=== PATIENT | male | born 2000 | race African-American/Black ===

== ENCOUNTER 2021-04-30 11:54 | Emergency (ER) | payer SELFPAY ==
[~2021-04-30] VITALS: Ht 172.7 cm; Wt 77.0 kg
[2021-04-30] MEDS ORDERED: ONDANSETRON HCL 4MG/2ML INJ IV STA (12:26)
[2021-04-30] MEDS ORDERED: KETOROLAC 30MG/ML VIAL IV STA (12:26)
[2021-04-30] MEDS ORDERED: SODIUM CHLORIDE 0.9% 1,000 ML IV ONE (12:30)
[2021-04-30 12:59] LABS: BASOPHILS % 1.2 % (0.0-2.0); EOSINOPHILS % 4.8 % (0.0-5.0); HEMATOCRIT. 41.4 % (42.0-52.0); HEMOGLOBIN. 14.4 g/dL (14.0-18.0); LYMPHOCYTES % 43.2 % (20.0-50.0); MEAN CORPUSCULAR HEMOGLOBIN 28.1 pg (28.0-32.0); MEAN CORPUSCULAR VOLUME 80.7 fL (80.0-94.0); MEAN PLATELET VOLUME 8.1 fl (7.4-10.4); MONOCYTES % 5.3 % (2.0-8.0); NEUTROPHILS % 45.5 % (40.0-76.0); PLATELET 348 x1000/uL (130-400); RED BLOOD CELL COUNT 5.12 mill/uL (4.7-6.1); RED CELL DISTRIBUTION WIDTH 17.5 % (11.6-14.6)
[2021-04-30 13:04] LABS: CHLORIDE 107 mEq/L (98-107)
[2021-04-30 13:08] LABS: ETHANOL BLOOD < 10 mg/dL
[2021-04-30] MEDS ORDERED: HALOPERIDOL LACTATE 5MG/ML VIAL IM ONE (14:00)
[2021-04-30 14:20] VITALS: BP 142/74
[2021-04-30] MEDS ORDERED: ONDA4TAB5 MT (17:44)
== END 2021-04-30 19:27 | disposition home or self-care (01) ==
LOC: ER 11:54
DX: R10.9 Unspecified abdominal pain (principal)
CPT/HCPCS: 36415; 80053; 80320; 83690; 85025; 93005; 96372; 96374; 96375; 99284; J1630; J1885; J2405; J7030; Z7610; G0480

== ENCOUNTER 2021-06-10 12:45 | Emergency (ER) | payer MEDICAID ==
[~2021-06-10] VITALS: Ht 172.7 cm; Wt 68.0 kg
[~2021-06-10 12:45] MED LIST: ONDA4TAB5 MT
[2021-06-10] MEDS ORDERED: FAMOTIDINE 20MG/2ML VIAL IV STA (13:28)
[2021-06-10] MEDS ORDERED: MORPHINE SULFATE 4 MG/ML CPJ (NOT FOR IM USE) IV STA (13:28)
[2021-06-10] MEDS ORDERED: METOCLOPRAMIDE HCL 10MG/2ML VIAL IV ONE (13:30)
[2021-06-10] MEDS ORDERED: SODIUM CHLORIDE 0.9% 1,000 ML IV ONE (13:30)
[2021-06-10 13:49] LABS: CHLORIDE 97 mEq/L (98-107)
[2021-06-10 13:54] LABS: ETHANOL BLOOD < 10 mg/dL
[2021-06-10 14:42] LABS: BASOPHILS % 0.7 % (0.0-2.0); EOSINOPHILS % 0.3 % (0.0-5.0); HEMOGLOBIN. 17.4 g/dL (14.0-18.0); LYMPHOCYTES % 39.2 % (20.0-50.0); MEAN CORPUSCULAR HEMOGLOBIN 29.1 pg (28.0-32.0); MEAN CORPUSCULAR VOLUME 79.2 fL (80.0-94.0); MEAN PLATELET VOLUME 8.2 fl (7.4-10.4); MONOCYTES % 7.8 % (2.0-8.0); PLATELET 242 x1000/uL (130-400); RED BLOOD CELL COUNT 5.96 mill/uL (4.7-6.1); RED CELL DISTRIBUTION WIDTH 15.7 % (11.6-14.6)
[2021-06-10 14:50] LABS: HEMATOCRIT. 49.2 % (42.0-52.0)
[2021-06-10] MEDS ORDERED: MORPHINE SULFATE 2 MG/ML CPJ (NOT FOR IM USE) IV NR (15:00)
[2021-06-10] MEDS ORDERED: POTASSIUM CHLORIDE 20MEQ TABLET SR PO ONE (15:45)
[2021-06-10 15:50] VITALS: BP 134/75
== END 2021-06-10 16:10 | disposition left against medical advice (07) ==
LOC: ER 12:54
DX: R10.84 Generalized abdominal pain (principal); R11.2 Nausea with vomiting, unspecified; E87.6 Hypokalemia
CPT/HCPCS: 36415; 74176; 80053; 80320; 83690; 85025; 96361; 96374; 96375; 99284; J2765; J3490; J7030; J2270; G0480

== ENCOUNTER 2023-07-17 09:03 | Emergency (ER) | payer MEDICAID ==
[~2023-07-17] VITALS: Ht 177.8 cm; Wt 64.0 kg
[2023-07-17] MEDS ORDERED: METOCLOPRAMIDE HCL 10MG/2ML VIAL IV STA (09:09)
[2023-07-17 09:12] VITALS: O2SAT 100
[2023-07-17] MEDS ORDERED: SODIUM CHLORIDE 0.9% 1,000 ML IV ONE (09:15)
[2023-07-17] MEDS ORDERED: KETOROLAC 15MG/ML VIAL IV ONE (09:15)
[2023-07-17 09:35] LABS: BASOPHILS % 0.1 % (0.0-2.0); EOSINOPHILS % 0.1 % (0.0-5.0); HEMATOCRIT. 40.4 % (42.0-52.0); HEMOGLOBIN. 14.4 g/dL (14.0-18.0); LYMPHOCYTES % 15.8 % (20.0-50.0); MEAN CORPUSCULAR HEMOGLOBIN 30.8 pg (28.0-32.0); MEAN CORPUSCULAR HGB CONC 35.6 g/dL (31.0-37.0); MEAN CORPUSCULAR VOLUME 86.6 fL (80.0-94.0); MEAN PLATELET VOLUME 8.3 fl (7.4-10.4); MONOCYTES % 6.2 % (2.0-8.0); NEUTROPHILS % 77.8 % (40.0-76.0); PLATELET 325 x1000/uL (130-400); RED BLOOD CELL COUNT 4.67 mill/uL (4.7-6.1); RED CELL DISTRIBUTION WIDTH 13.7 % (11.6-14.6); WHITE BLOOD COUNT 13.2 x1000/uL (4.5-11.0)
[2023-07-17 09:48] LABS: CHLORIDE 102 mEq/L (98-107); INDEX HEMOLYSI 1 (1-3); INDEX ICTERIC 1 (1-4); INDEX LIPEMIC 1 (1-3); POTASSIUM 3.2 mEq/L (3.5-5.1); SODIUM 135 mEq/L (136-145)
[2023-07-17 10:01] LABS: ALANINE AMINOTRANSFERASE 28 IU/L (13-61); ALBUMIN 4.1 g/dL (3.4-5.0); ASPARTATE AMINOTRANSFERASE 28 IU/L (15-37); BILIRUBIN TOTAL 0.5 mg/dL (0.1-1.0); CALCIUM 8.9 mg/dL (8.5-10.1); CARBON DIOXIDE 22 mEq/L (21-32); CREATININE 0.7 mg/dL (0.6-1.3); ETHANOL BLOOD < 10 mg/dL (<10); GLUCOSE 101 mg/dL (70-105); PROTEIN TOTAL 8.6 g/dL (6.0-8.3); UREA NITROGEN BLOOD 13 mg/dL (7-21)
[2023-07-17 11:52] VITALS: BP 104/60; PULSE 62; RESP 19; TEMP 98.1
== END 2023-07-17 12:27 | disposition home or self-care (01) ==
LOC: ER 09:03
DX: R11.2 Nausea with vomiting, unspecified (principal); R10.9 Unspecified abdominal pain; Z88.8 Allergy status to other drugs, medicaments and biological substances
CPT/HCPCS: 80053; 80320; 83690; 85025; 36415; 71045; 74176; 96361; 96374; 96375; 99285; J1885; J2765; J7030; Z7610 ×3; G0480

== ENCOUNTER 2023-07-20 10:32 | Emergency (ER) | payer MEDICAID ==
[~2023-07-20] VITALS: Ht 172.7 cm; Wt 68.0 kg
[2023-07-20 10:58] VITALS: BP 133/94; PULSE 55; RESP 16; TEMP 98.6; O2SAT 100
[2023-07-20] MEDS ORDERED: SODIUM CHLORIDE 0.9% 1,000 ML IV ONE (11:15)
[2023-07-20] MEDS ORDERED: FAMOTIDINE 20MG/2ML VIAL IV ONE (11:15)
[2023-07-20] MEDS ORDERED: DIPHENHYDRAMINE 50MG/ML VIAL IV ONE (11:15)
[2023-07-20] MEDS ORDERED: HALOPERIDOL LACTATE 5MG/ML VIAL IM ONE (11:15)
[2023-07-20 11:25] LABS: BASOPHILS % 0.6 % (0.0-2.0); EOSINOPHILS % 1.4 % (0.0-5.0); HEMATOCRIT. 40.1 % (42.0-52.0); LYMPHOCYTES % 22.9 % (20.0-50.0); MEAN CORPUSCULAR HEMOGLOBIN 30.9 pg (28.0-32.0); MEAN CORPUSCULAR VOLUME 88.1 fL (80.0-94.0); MEAN PLATELET VOLUME 8.4 fl (7.4-10.4); MONOCYTES % 6.9 % (2.0-8.0); NEUTROPHILS % 68.2 % (40.0-76.0); PLATELET 312 x1000/uL (130-400); RED BLOOD CELL COUNT 4.55 mill/uL (4.7-6.1); RED CELL DISTRIBUTION WIDTH 13.6 % (11.6-14.6); WHITE BLOOD COUNT 10.5 x1000/uL (4.5-11.0)
[2023-07-20] MEDS ORDERED: METHYLPREDNISOLONE SOD SUCC 125MG/2ML (ACT-O-VIAL) IV ONE (11:30)
[2023-07-20 11:44] LABS: CHLORIDE 107 mEq/L (98-107); INDEX HEMOLYSI 2 (1-3); INDEX ICTERIC 1 (1-4); INDEX LIPEMIC 1 (1-3); POTASSIUM 3.7 mEq/L (3.5-5.1); SODIUM 137 mEq/L (136-145)
[2023-07-20 11:51] LABS: ALANINE AMINOTRANSFERASE 24 IU/L (13-61); ASPARTATE AMINOTRANSFERASE 21 IU/L (15-37); BILIRUBIN TOTAL 0.4 mg/dL (0.1-1.0); CALCIUM 9.2 mg/dL (8.5-10.1); CARBON DIOXIDE 24 mEq/L (21-32); CREATININE 0.9 mg/dL (0.6-1.3); GLUCOSE 102 mg/dL (70-105); PROTEIN TOTAL 8.2 g/dL (6.0-8.3); UREA NITROGEN BLOOD 14 mg/dL (7-21)
[2023-07-20] MEDS ORDERED: METO-293 MT (13:04)
== END 2023-07-20 14:59 | disposition home or self-care (01) ==
LOC: ER 11:46
DX: F12.10 Cannabis abuse, uncomplicated (principal); R11.2 Nausea with vomiting, unspecified
CPT/HCPCS: 80053; 83690; 85025; 36415; 96372; 96374; 96375; 99284; J1200; J3490; J1630; J2930; J7030; Z7610 ×3

== ENCOUNTER 2023-08-11 00:44 | Emergency (ER) | payer MEDICAID ==
[~2023-08-11] VITALS: Ht 167.6 cm; Wt 70.0 kg
[~2023-08-11 00:44] MED LIST changes: +METO-293 MT
[2023-08-11 00:48] VITALS: O2SAT 100
[2023-08-11] MEDS ORDERED: PANTOPRAZOLE SODIUM 40 MG/VIAL IV STA (01:11)
[2023-08-11] MEDS ORDERED: METOCLOPRAMIDE HCL 10MG/2ML VIAL IV STA (01:11)
[2023-08-11] MEDS ORDERED: SODIUM CHLORIDE 0.9% 1,000 ML IV ONE (01:15)
[2023-08-11 01:45] LABS: BASOPHILS % 0.5 % (0.0-2.0); EOSINOPHILS % 0.1 % (0.0-5.0); HEMATOCRIT. 41.1 % (42.0-52.0); HEMOGLOBIN. 14.3 g/dL (14.0-18.0); LYMPHOCYTES % 14.3 % (20.0-50.0); MEAN CORPUSCULAR HEMOGLOBIN 31.4 pg (28.0-32.0); MEAN CORPUSCULAR HGB CONC 34.7 g/dL (31.0-37.0); MEAN CORPUSCULAR VOLUME 90.5 fL (80.0-94.0); MEAN PLATELET VOLUME 8.1 fl (7.4-10.4); MONOCYTES % 1.7 % (2.0-8.0); NEUTROPHILS % 83.4 % (40.0-76.0); PLATELET 309 x1000/uL (130-400); RED BLOOD CELL COUNT 4.54 mill/uL (4.7-6.1); RED CELL DISTRIBUTION WIDTH 13.8 % (11.6-14.6); WHITE BLOOD COUNT 9.9 x1000/uL (4.5-11.0)
[2023-08-11 01:56] LABS: ALANINE AMINOTRANSFERASE 26 IU/L (10-49); ALBUMIN 4.3 g/dL (3.2-4.8); ASPARTATE AMINOTRANSFERASE 27 IU/L (<34); BILIRUBIN TOTAL 0.7 mg/dL (0.1-1.0); CALCIUM 9.6 mg/dL (8.7-10.4); CARBON DIOXIDE 22 mEq/L (21-32); CHLORIDE 103 mEq/L (98-107); CREATININE 0.8 mg/dL (0.6-1.3); GLUCOSE 109 mg/dL (70-105); POTASSIUM 3.6 mEq/L (3.5-5.1); PROTEIN TOTAL 7.7 g/dL (6.0-8.3); SODIUM 137 mEq/L (136-145); UREA NITROGEN BLOOD 6 mg/dL (9-23)
[2023-08-11 02:58] LABS: LACTIC ACID 4.9 mmol/L (0.4-2.0)
[2023-08-11 03:26] LABS: CLARITY URINE CLEAR (CLEAR); COLOR URINE YELLOW (YELLOW); GLUCOSE URINE NEGATIVE (NEGATIVE); KETONES URINE 4+ (NEGATIVE); LEUKOCYTE ESTERASE URINE NEGATIVE (NEGATIVE); NITRITE URINE NEGATIVE (NEGATIVE); OCCULT BLOOD URINE NEGATIVE (NEGATIVE); PH URINE 6.5 (4.5-8.0); PROTEIN URINE TRACE (NEGATIVE); SPECIFIC GRAVITY URINE 1.064 (1.005-1.030); UROBILINOGEN URINE 0.2 E.U./dL (0.2-1.0)
[2023-08-11 03:28] LABS: BACTERIA URINE NONE SEEN; RBC URINE 0-2 /hpf (0-2); SQUAMOUS EPITHELIAL CELL URINE 1+ /lpf (RARE/1+); WBC URINE 0-2 /hpf (0-2); YEAST URINE NONE SEEN
[2023-08-11] MEDS ORDERED: METOCLOPRAMIDE HCL 10MG/2ML VIAL IV ONE (05:30)
[2023-08-11] MEDS ORDERED: IOHEXOL-300 100 ML BOTTLE ONE (06:03)
[2023-08-11 07:33] VITALS: BP 118/78; PULSE 57; RESP 20; TEMP 100
[2023-08-11 07:53] LABS: MUCUS URINE 2+ /lpf (NONE/TRACE)
== END 2023-08-11 08:20 | disposition left against medical advice (07) ==
LOC: ER 00:44
DX: R11.2 Nausea with vomiting, unspecified (principal); Z90.13 Acquired absence of bilateral breasts and nipples; Z88.8 Allergy status to other drugs, medicaments and biological substances; Z91.013 Allergy to seafood
CPT/HCPCS: 80053; 81003; 83605; 83690; 85025; 36415; 74177; 96365; 96366; 96375; 99285; Q9967; J2765; C9113; J7030; Z7610

== ENCOUNTER 2023-10-21 14:00 | Emergency (ER) | payer MEDICAID ==
[~2023-10-21] VITALS: Ht 172.7 cm; Wt 65.0 kg
[2023-10-21 14:35] VITALS: BP 118/55; PULSE 73; RESP 16; TEMP 98.4; O2SAT 99
[2023-10-21] MEDS: BACITRACIN ZINC OINT UDPKT TOP ONE (16:30)
[2023-10-21] MEDS ORDERED: TETANUS, DIPHTHERIA, PERTUSSIS VAC/PF 0.5ML (>10YR OLD) IM ONE ×2 (16:30→19:00)
[2023-10-21] MEDS: LIDOCAINE HCL/PF 1% 10 MG/ML 5ML VIAL INFIL ONE (16:30)
[2023-10-21] MEDS ORDERED: DOCU100T MT (18:47)
[2023-10-21] MEDS ORDERED: AMOX1TAB16 MT (18:47)
[2023-10-21] MEDS ORDERED: SULF1TAB48 MT (18:47)
== END 2023-10-21 19:02 | disposition home or self-care (01) ==
LOC: ER 14:00
DX: K61.0 Anal abscess (principal); F12.10 Cannabis abuse, uncomplicated; Z88.8 Allergy status to other drugs, medicaments and biological substances; Z91.013 Allergy to seafood
CPT/HCPCS: 46050; 99284; 90715; 90471; J3490; 10060; 99283

== ENCOUNTER 2023-11-21 15:09 | Emergency (ER) | payer MEDICAID ==
[~2023-11-21] VITALS: Ht 172.7 cm; Wt 60.0 kg
[~2023-11-21 15:09] MED LIST changes: +AMOX1TAB16 MT; +DOCU100T MT; +SULF1TAB48 MT
[2023-11-21] MEDS ORDERED: DICYCLOMINE 10 MG/5 ML ORAL SYR PO STA (15:16)
[2023-11-21 15:23] VITALS: BP 123/92; PULSE 58; RESP 16; TEMP 98.5; O2SAT 98
[2023-11-21] MEDS: METOCLOPRAMIDE HCL 10MG/2ML VIAL IV ONE (16:22)
[2023-11-21] MEDS: SODIUM CHLORIDE 0.9% 1,000 ML IV ONE (16:22)
[2023-11-21] MEDS: DICYCLOMINE 10 MG/5 ML ORAL SYR PO NR (16:22)
[2023-11-21] MEDS: MAGNESIUM/ALUMINUM HYDROXIDE/SIMETHICONE 30ML UDC PO STA (16:22)
[2023-11-21 17:22] LABS: BASOPHILS % 0.3 % (0.0-2.0); EOSINOPHILS % 0.1 % (0.0-5.0); HEMATOCRIT. 39.1 % (42.0-52.0); HEMOGLOBIN. 13.7 g/dL (14.0-18.0); LYMPHOCYTES % 12.3 % (20.0-50.0); MEAN CORPUSCULAR HEMOGLOBIN 30.6 pg (28.0-32.0); MEAN CORPUSCULAR HGB CONC 35.1 g/dL (31.0-37.0); MEAN CORPUSCULAR VOLUME 87.2 fL (80.0-94.0); MEAN PLATELET VOLUME 7.8 fl (7.4-10.4); MONOCYTES % 7.2 % (2.0-8.0); NEUTROPHILS % 80.1 % (40.0-76.0); PLATELET 401 x1000/uL (130-400); RED BLOOD CELL COUNT 4.48 mill/uL (4.7-6.1); RED CELL DISTRIBUTION WIDTH 14.1 % (11.6-14.6); WHITE BLOOD COUNT 18.5 x1000/uL (4.5-11.0)
[2023-11-21 17:30] LABS: INR 1.1; PROTHROMBIN TIME 11.8 sec (9.6-11.0)
[2023-11-21 17:34] LABS: ALANINE AMINOTRANSFERASE 19 IU/L (10-49); ALBUMIN 4.5 g/dL (3.2-4.8); ASPARTATE AMINOTRANSFERASE 25 IU/L (<34); BILIRUBIN TOTAL 0.3 mg/dL (0.1-1.0); CALCIUM 9.1 mg/dL (8.7-10.4); CARBON DIOXIDE 24 mEq/L (21-32); CHLORIDE 104 mEq/L (98-107); CREATININE 0.7 mg/dL (0.6-1.3); GLUCOSE 99 mg/dL (70-105); PROTEIN TOTAL 8.6 g/dL (6.0-8.3); SODIUM 136 mEq/L (136-145); UREA NITROGEN BLOOD 10 mg/dL (9-23)
[2023-11-21 17:45] LABS: ETHANOL BLOOD < 10 mg/dL (<10)
[2023-11-21] MEDS ORDERED: MAG-55 MT (17:57)
[2023-11-21] MEDS ORDERED: FAMO40TA7 MT (17:57)
[2023-11-22] MEDS ORDERED: METO-293 MT (14:34)
== END 2023-11-21 19:14 | disposition home or self-care (01) ==
LOC: ER 15:09
DX: R10.13 Epigastric pain (principal); R11.2 Nausea with vomiting, unspecified; F12.10 Cannabis abuse, uncomplicated; Z88.8 Allergy status to other drugs, medicaments and biological substances; Z79.899 Other long term (current) drug therapy
CPT/HCPCS: 80053; 80320; 83605; 83690; 85025; 85610; 36415; 71045; 74176; 96361; 96374; 99285; J2765; J7030; Z7610; G0480

== ENCOUNTER 2023-11-22 10:51 | Emergency (ER) | payer MEDICAID ==
[~2023-11-22] VITALS: Ht 167.6 cm; Wt 65.0 kg
[~2023-11-22 10:51] MED LIST changes: +FAMO40TA7 MT; +MAG-55 MT
[2023-11-22 10:59] VITALS: TEMP 98.5; O2SAT 100
[2023-11-22 11:53] LABS: BASOPHILS % 0.8 % (0.0-2.0); HEMATOCRIT. 39.5 % (42.0-52.0); HEMOGLOBIN. 13.8 g/dL (14.0-18.0); LYMPHOCYTES % 11.6 % (20.0-50.0); MEAN CORPUSCULAR HEMOGLOBIN 30.1 pg (28.0-32.0); MEAN CORPUSCULAR VOLUME 85.9 fL (80.0-94.0); MEAN PLATELET VOLUME 8.2 fl (7.4-10.4); NEUTROPHILS % 80.6 % (40.0-76.0); PLATELET 332 x1000/uL (130-400); WHITE BLOOD COUNT 13.7 x1000/uL (4.5-11.0)
[2023-11-22 11:54] LABS: ALANINE AMINOTRANSFERASE 19 IU/L (10-49); ALBUMIN 4.4 g/dL (3.2-4.8); ASPARTATE AMINOTRANSFERASE 22 IU/L (<34); BILIRUBIN TOTAL 0.4 mg/dL (0.1-1.0); CALCIUM 8.6 mg/dL (8.7-10.4); CARBON DIOXIDE 24 mEq/L (21-32); CHLORIDE 103 mEq/L (98-107); CREATININE 0.7 mg/dL (0.6-1.3); GLUCOSE 98 mg/dL (70-105); POTASSIUM 2.9 mEq/L (3.5-5.1); PROTEIN TOTAL 8.2 g/dL (6.0-8.3); SODIUM 135 mEq/L (136-145); UREA NITROGEN BLOOD 10 mg/dL (9-23)
[2023-11-22 12:09] LABS: ETHANOL BLOOD < 10 mg/dL (<10)
[2023-11-22 13:25] VITALS: BP 126/74; PULSE 76; RESP 15
[2023-11-22] MEDS: HALOPERIDOL LACTATE 5MG/ML VIAL IM ONE (13:25)
[2023-11-22] MEDS: KETOROLAC 15MG/ML VIAL IV ONE (13:25)
[2023-11-22] MEDS: PANTOPRAZOLE SODIUM 40 MG/VIAL IV STA (13:25)
[2023-11-22] MEDS: SODIUM CHLORIDE 0.9% 1,000 ML IV ONE (13:25)
[2023-11-22] MEDS ORDERED: POTASSIUM CHLORIDE 20MEQ TABLET SR PO NR (14:30)
[2023-11-22] MEDS ORDERED: METO-293 MT (14:34)
== END 2023-11-22 14:44 | disposition home or self-care (01) ==
LOC: ER 11:04
DX: R11.15 Cyclical vomiting syndrome unrelated to migraine (principal); R11.10 Vomiting, unspecified; F12.90 Cannabis use, unspecified, uncomplicated; Z91.013 Allergy to seafood; Z88.8 Allergy status to other drugs, medicaments and biological substances
CPT/HCPCS: 80053; 80320; 83690; 85025; 36415; 96361; 96372; 96374; 96375; 99284; J1630; J1885; C9113; J7030; Z7610 ×2; G0480